=== PATIENT | male | born 1955 | race Caucasian/White ===

== ENCOUNTER 2021-10-15 19:21 | Inpatient (IN) | payer MEDICARE, MEDICAID ==
[~2021-10-15] VITALS: Ht 172.7 cm; Wt 77.1 kg
[~2021-10-15 19:21] MED LIST: ATOR20TA65 MT; INSU100I28 SQ; LISI40TA13 MT; LOPHC2 MT; METO25TA6 PO
[2021-10-15] MEDS ORDERED: LABETALOL 5MG/ML SYR 20 MG/4 ML SYRINGE IV ONE (19:45)
[2021-10-15 20:14] LABS: BASOPHILS % 0.6 % (0.0-2.0); EOSINOPHILS % 0.2 % (0.0-5.0); HEMATOCRIT. 30.2 % (42.0-52.0); MEAN CORPUSCULAR HEMOGLOBIN 33.5 pg (28.0-32.0); MEAN CORPUSCULAR VOLUME 100.8 fL (80.0-94.0); MEAN PLATELET VOLUME 8.4 fl (7.4-10.4); MONOCYTES % 8.6 % (2.0-8.0); NEUTROPHILS % 82.6 % (40.0-76.0); PLATELET 143 x1000/uL (130-400); RED CELL DISTRIBUTION WIDTH 17.4 % (11.6-14.6)
[2021-10-15 20:25] LABS: INR 1.1; PARTIAL THROMBOPLASTIN TIME 43.7 sec (23.4-31.0); PROTHROMBIN TIME 11.3 sec (9.6-11.0)
[2021-10-15 20:36] LABS: CHLORIDE 108 mEq/L (98-107)
[2021-10-15 20:40] LABS: ETHANOL BLOOD < 10 mg/dL
[2021-10-15] MEDS ORDERED: CLONIDINE 0.2MG TABLET PO ONE (21:30)
[2021-10-15] MEDS ORDERED: ASPIRIN 325MG EC TABLET PO ONE (22:00)
[2021-10-15] MEDS ORDERED: CLONIDINE 0.1MG TABLET PO ONE (22:15)
[2021-10-15] MEDS ORDERED: HYDRALAZINE 20MG/ML VIAL IV NR (23:00)
[2021-10-16] MEDS ORDERED: NICARDIPINE 40MG/200ML PREMIX 200 ML IV PRN (00:02)
[2021-10-16] MEDS: NICARDIPINE 40MG/200ML PREMIX 200 ML IV PRN ×2 (01:30→15:45)
[2021-10-16] MEDS ORDERED: DEXTROSE 50% WATER 50ML SYRINGE IV PRN ×2 (03:30)
[2021-10-16 05:24] LABS: CLARITY URINE CLOUDY (CLEAR); COLOR URINE YELLOW (YELLOW); KETONES URINE NEGATIVE (NEGATIVE); LEUKOCYTE ESTERASE URINE NEGATIVE (NEGATIVE); NITRITE URINE NEGATIVE (NEGATIVE); OCCULT BLOOD URINE 1+ (NEGATIVE); PH URINE 6.5 (4.5-8.0); PROTEIN URINE 3+ (NEGATIVE); SPECIFIC GRAVITY URINE 1.011 (1.005-1.030); UROBILINOGEN URINE 0.2 E.U./dL (0.2-1.0)
[2021-10-16 06:07] LABS: *AMPHETAMINES SCREEN URINE NEGATIVE (NEGATIVE); CANNABINOID URINE SCREEN NEGATIVE (NEGATIVE); PHENCYCLIDINE URINE SCREEN NEGATIVE (NEGATIVE)
[2021-10-16 06:10] LABS: *BARBITURATES SCREEN URINE NEGATIVE (NEGATIVE); *BENZODIAZEPINES SCREEN URINE NEGATIVE (NEGATIVE); *COCAINE SCREEN URINE NEGATIVE (NEGATIVE); METHADONE URINE SCREEN NEGATIVE (NEGATIVE); OPIATES URINE SCREEN NEGATIVE (NEGATIVE)
[2021-10-16] MEDS ORDERED: ONDANSETRON HCL 4MG/2ML INJ IV PRN (09:15)
[2021-10-16] MEDS: NIFEDIPINE XL 60MG TAB PO SCH (09:15)
[2021-10-16] MEDS ORDERED: ACETAMINOPHEN 325MG TABLET PO PRN (09:15)
[2021-10-16] MEDS: ENOXAPARIN 30MG/0.3ML SYR SUBCUT SCH (09:50)
[2021-10-17] VITALS (16 sets, daily range): BP systolic 112–188; BP diastolic 67–88
[2021-10-17] MEDS ORDERED: ASPIRIN 81MG TABLET PO SCH (09:00)
[2021-10-17] MEDS: NIFEDIPINE XL 60MG TAB PO SCH (13:06)
[2021-10-17] MEDS: ENOXAPARIN 30MG/0.3ML SYR SUBCUT SCH (13:06)
== END 2021-10-17 16:30 | disposition home or self-care (01) | DRG 70 ==
LOC: ER 19:21 → 5WST 22:01 → ENRESERV 22:37 → MICUSO 10-16 02:47 → 5EST 10-17 09:05
PROVIDERS: ADMIT Internal Medicine; ATTEND Internal Medicine
PROC: 5A1D70Z Performance of Urinary Filtration, Intermittent, Less than 6 Hours Per Day (ICD-10-PCS; principal; 2021-10-17)
DX: G93.41 Metabolic encephalopathy (principal); N18.6 End stage renal disease; R47.01 Aphasia; I12.0 Hypertensive chronic kidney disease with stage 5 chronic kidney disease or end stage renal disease; E11.649 Type 2 diabetes mellitus with hypoglycemia without coma; D63.1 Anemia in chronic kidney disease; E11.22 Type 2 diabetes mellitus with diabetic chronic kidney disease; E87.8 Other disorders of electrolyte and fluid balance, not elsewhere classified; Z20.822 Contact with and (suspected) exposure to COVID-19; I25.10 Atherosclerotic heart disease of native coronary artery without angina pectoris; Z86.73 Personal history of transient ischemic attack (TIA), and cerebral infarction without residual deficits; Z99.2 Dependence on renal dialysis; Z95.1 Presence of aortocoronary bypass graft; Z95.0 Presence of cardiac pacemaker; Z95.5 Presence of coronary angioplasty implant and graft; Z79.899 Other long term (current) drug therapy; I25.2 Old myocardial infarction
CPT/HCPCS: 36415; 71045; 80053; 80305; 80320; 81003; 82140; 82962; 83880; 84484; 85025; 87426; 93005; 99291; J0360; J1650; J3490; G0480